=== PATIENT | female | born 1945 | race Caucasian/White ===

== ENCOUNTER → 2017-02-09 | Outpatient (CLI) | payer MEDICARE, OTHER ==
[~2017-02-09] MED LIST: ASPI-696 PO; LOSA1TAB18 PO; SIMV40TA3 PO
== END | disposition home or self-care (01) ==
LOC: ROC 12:53
PROVIDERS: ATTEND Radiology Radiation Oncology
DX: C55 Malignant neoplasm of uterus, part unspecified (principal)
CPT/HCPCS: G0463

== ENCOUNTER → 2018-02-10 | Outpatient (CLI) | payer MEDICARE, OTHER ==
[~2018-02-10] MED LIST changes: -LOSA1TAB18 PO; +LOSA1TAB25 PO
== END | disposition home or self-care (01) ==
LOC: ROC 07:10
PROVIDERS: ATTEND Radiology Radiation Oncology
DX: C54.9 Malignant neoplasm of corpus uteri, unspecified (principal)
CPT/HCPCS: G0463